=== PATIENT | female | born 1940 | race Caucasian/White ===

== ENCOUNTER 2022-08-26 21:28 | Inpatient (IN) | payer MEDICARE, OTHER ==
[~2022-08-26] VITALS: Ht 165.1 cm; Wt 86.1 kg
[~2022-08-26 21:28] MED LIST: AMA1T PO; AMLO5TAB PO; APIX5TAB3 PO; ATEN50TA8 PO; ATOR80TA PO; CLOP75TA34 PO; DOCU-28 PO; FURO-150 PO; GABA-532 PO; LISI40TA13 PO; MELO-100 PO; METF-900 PO; MIRT-116 PO; POTA-206 PO
--- NOTE | 2022-08-26 21:45 | NUR ---
XR TO PT BEDSIDE AT THIS TIME
[2022-08-26 21:48] LABS: BASOPHILS % (AUTO) 0.2 % (0-1); EOSINOPHILS # (AUTO) 0.3 X10'3 (0-0.9); HEMATOCRIT 33.9 % (35.0-45.0); HEMOGLOBIN 11.1 g/dl (12.0-16.0); LYMPHOCYTES % (AUTO) 7.3 % (21-51); MEAN CORPUSCULAR HEMOGLOBIN 30.6 PG (27.0-31.0); MEAN CORPUSCULAR HGB CONC 32.8 g/dL (33.0-36.5); MEAN CORPUSCULAR VOLUME 93.3 FL (78-98); MEAN PLATELET VOLUME 9.6 FL (7.4-10.4); MONOCYTES # (AUTO) 0.9 X10'3 (0-0.9); MONOCYTES % (AUTO) 6.2 % (2-12); NEUTROPHILS % (AUTO) 84.3 % (42-75); PLATELET COUNT 123 X10'3 (140-440); RED BLOOD COUNT 3.64 X10'6 (4.20-5.60); RED CELL DISTRIBUTION WIDTH 15.4 % (11.5-14.5); WHITE BLOOD COUNT 14.2 X10'3 (4.5-11.0)
--- NOTE | 2022-08-26 21:56 | NUR ---
TRAIN ELECTRONIC TECHNICIAN TO PT BEDSIDE AT THIS TIME
[2022-08-26 22:02] LABS: ALANINE AMINOTRANSFERASE 13 U/L (12-78); ALBUMIN/GLOBULIN RATIO 1.2 (1.1-1.5); ALKALINE PHOSPHATASE 102 IU/L (46-116); ANION GAP 5 (8-16); ASPARTATE AMINO TRANSFERASE 24 U/L (10-37); BILIRUBIN,TOTAL 0.9 MG/DL (0.1-1.0); BLOOD UREA NITROGEN 24 MG/DL (7-18); BUN/CREATININE RATIO 21.4 (10.0-20.0); CALCIUM 8.1 MG/DL (8.5-10.1); CHLORIDE 98 MMOL/L (99-107); CREATININE 1.12 MG/DL (0.40-0.90); GLUCOSE 156 MG/DL (70-104); SODIUM 139 MMOL/L (135-145); TOTAL CARBON DIOXIDE 36.5 MMOL/L (24-32); TOTAL PROTEIN 5.6 G/DL (6.4-8.2); eGFR 47 ML/MIN
[2022-08-26 22:13] LABS: POTASSIUM 3.8 MMOL/L (3.5-5.1)
[2022-08-26] MEDS ORDERED: CefTRIAXone 2gm/D5W 50ml BAG 50 ML IV ONE (22:25)
[2022-08-26] MEDS ORDERED: normal saline 1000ML IV soln IV ONE (22:25)
[2022-08-26] MEDS ORDERED: piperacillin/tazo 3.375gm/50ml 50 ML IV ONE (22:30)
[2022-08-26] MEDS ORDERED: vancomycin/NS 1 GM ADD-VANTAGE 250 ML IV ONE (22:30)
[2022-08-26 22:51] LABS: CLARITY,URINE CLEAR (Clear); COLOR,URINE YELLOW (Yellow); GLUCOSE, URINE NEGATIVE (Neg); KETONES,URINE TRACE mg/dl (Neg); LEUKOCYTE ESTERASE ,URINE NEGATIVE (Neg); NITRITES, URINE NEGATIVE (Neg); OCCULT BLOOD,URINE NEGATIVE (Neg); PROTEIN,URINE NEGATIVE (Neg); UROBILINOGEN,URINE 0.2 E.U/dL (0.2-1.0)
[2022-08-26 22:53] LABS: BURR CELLS FEW; PLATELET ESTIMATE DECREASED; POIKILOCYTOSIS FEW; TARGET CELLS FEW
[2022-08-26 22:54] LABS: ELLIPTOCYTES FEW
[2022-08-26 22:54] LABS: UA COLLECTION TYPE FOLEY CATH
[2022-08-26 22:57] LABS: HYALINE CASTS >30 /LPF (NEGATIVE); SQUAMOUS EPITHELIAL CELL,UR MANY /LPF (FEW)
[2022-08-26 22:58] LABS: BACTERIA,URINE FEW /HPF (Neg); WBC,URINE 0-4 /HPF (0-4)
[2022-08-26 22:59] LABS: TRANSITIONAL EPI CELLS,URINE FEW /HPF
--- NOTE | 2022-08-26 23:48 | NUR ---
DR. GONZÁLES TO PT BEDSIDE AT THIS TIME
[2022-08-27] VITALS (19 sets, daily range): BP systolic 88–131; BP diastolic 36–64
[2022-08-27] MEDS ORDERED: potassium Cl 20 mEq SR tablet PO PRN ×2 (00:05)
[2022-08-27] MEDS ORDERED: acetaminophen 325mg tablet PO PRN (00:05)
[2022-08-27] MEDS ORDERED: glucagon, human recombinant 1mg kit SUBCUT PRN (00:05)
[2022-08-27] MEDS ORDERED: magnesium 4gm in 100ml NS 100 ML IV PRN (00:05)
[2022-08-27] MEDS ORDERED: ondansetron/PF 4mg/2ml inj IV PRN (00:05)
[2022-08-27] MEDS ORDERED: DEXTROSE 15 GM of carb/4 tabs (each vial/BOTTLE has 4 tablets) PO PRN ×2 (00:05)
[2022-08-27] MEDS ORDERED: mag hydrox/Alum hydrox/simeth 30ml oral suspension PO PRN (00:05)
[2022-08-27] MEDS ORDERED: dextrose 50%-water 50ml dispensing syringe IV PRN ×2 (00:05)
[2022-08-27] MEDS ORDERED: PERFLUTREN PROTEIN-A MICROSPHR (Optison) 0.22 MG/ML 3ML VIAL IV PRN (00:05)
[2022-08-27] MEDS ORDERED: MESSAGE TO PHARMACY PO ONE (00:05)
[2022-08-27] MEDS ORDERED: NORepinephrine 8mg/ 250ml NS 250 ML IV PRN ×2 (00:50→11:36)
[2022-08-27 01:01] LABS: MAGNESIUM 1.6 MG/DL (1.5-2.4)
[2022-08-27] MEDS ORDERED: LIDOcaine 1% W/epiNEPHrine 1:100,000 20ml vial SQ ONE (01:15)
--- NOTE | 2022-08-27 01:50 | NUR ---
ASSUMED CARE FROM TALI FUENTES. DR SHEETS AT BEDSIDE PLACING CENTRAL LINE.
--- NOTE | 2022-08-27 02:00 | NUR ---
PER DR SHEETS, TURNED OFF NOREPI GTT TO SEE PT RESPONSE. AFTER 10 MIINUTES, PT BP DROPPED TO 65/24 AND 66/30, DR SHEETS NOTIFIED OF BP DROP. PER DR SHEETS, TURN BACK ON NOREPI GTT AND TITRATE. GTT RESTARTED.
[2022-08-27] MEDS ORDERED: IBUP-1985 PO (04:00)
[2022-08-27] MEDS ORDERED: HYDR-3965 PO (04:00)
[2022-08-27] MEDS ORDERED: ALB0.5UD IH (04:00)
[2022-08-27] MEDS ORDERED: LOPE2CAP PO (04:00)
[2022-08-27] MEDS ORDERED: DULO60CA65 PO (04:00)
[2022-08-27] MEDS ORDERED: GLIM2TAB6 PO (04:00)
[2022-08-27] MEDS ORDERED: BUDE0.5A11 NEB (04:00)
[2022-08-27] MEDS ORDERED: MULT-1085 PO (04:00)
[2022-08-27] MEDS ORDERED: RIVA20TA PO (04:00)
[2022-08-27] MEDS ORDERED: ATOR-2 PO (04:00)
[2022-08-27] MEDS ORDERED: ONDA-103 PO (04:00)
[2022-08-27] MEDS ORDERED: COLE1TAB2 PO (04:00)
[2022-08-27] MEDS ORDERED: CARV25TA3 PO (04:00)
[2022-08-27] MEDS ORDERED: PLE50T PO (04:00)
[2022-08-27] MEDS ORDERED: ASCO-10 PO (04:00)
[2022-08-27] MEDS ORDERED: TRAZ-251 PO (04:00)
[2022-08-27] MEDS ORDERED: loperamide 2mg capsule PO PRN (04:45)
[2022-08-27] MEDS ORDERED: HYDROcodone/acetaminophen 5mg/325mg tablet PO PRN (04:45)
--- NOTE | 2022-08-27 06:31 | NUR ---
Patient in room ICU 2038. I have received report from TALI Fitch and had the opportunity to ask questions and assume patient care.
[2022-08-27] MEDS: piperacillin/tazo 4.5gm/100ml 100 ML IV SCH ×3 (07:07→21:22)
[2022-08-27] MEDS: budesonide 0.5mg/2ml UD nebule IH SCH ×2 (08:00→19:28)
[2022-08-27] MEDS ORDERED: carVEDilol 12.5mg tablet PO SCH (08:00)
[2022-08-27] MEDS: docusate sod 100mg capsule PO SCH ×2 (08:00→20:47)
[2022-08-27] MEDS ORDERED: COLESTIPOL HCL 1 GM PO SCH (08:00)
[2022-08-27] MEDS: K and/or MAG REPLACEMENT MC SCH ×2 (08:00→20:00)
[2022-08-27] MEDS ORDERED: non-formulary drug (Ondansetron HCl 1 TAB) PO SCH (08:00)
[2022-08-27] MEDS ORDERED: apixaban 5mg tablet PO SCH (08:00)
[2022-08-27] MEDS: clopidogrel 75mg tablet PO SCH (08:08)
[2022-08-27] MEDS: cilostazol 50mg tablet PO SCH ×2 (08:08→20:47)
[2022-08-27] MEDS: duloxetine 30mg CAPSULE.DR PO SCH (08:08)
[2022-08-27] MEDS: ascorbic acid 500mg tablet PO SCH ×2 (08:08→20:47)
[2022-08-27] MEDS: gabapentin 300mg capsule PO SCH ×2 (08:08→20:48)
[2022-08-27] MEDS: multivitamins, therapeutics tablet PO SCH (08:08)
[2022-08-27] MEDS: normal saline 1000ml 1,000 ML IV SCH ×2 (09:19→21:24)
--- NOTE | 2022-08-27 11:06 | NUR ---
Initial: Per ER pt admit for acute metabolic encephalopathy and sepsis. Per RN pt with multiple wounds. Wound care has been consulted, pending assessment at this time. Noted pt receiving routine MVI and Vitamin C which will assist with wound healing. Pt initially on a clear liquid diet however advanced to MM5 with thin liquids per ST recs this morning. Lunch to be first meal since diet advancement. LBM 5/16 per EMR. Pt with routine bowel care available though documented to be refusing. Will continue to follow closely and make recommendations as appropriate pending wound care assessment and trends in PO intake. Recommendations: 1) Continue MM5 diet with thin liquids per ST recs; liberalize to regular as appropriate per ST recs 2) Monitor need for ONS/additional protein 3) Continue routine MVI and Vitamin C to assist with wound healing 4) Routine bowel care 5) Scaled weight this admit; subsequent weekly scaled weights Addendum: 08/27/22 at [address] Amended: Links added.
--- NOTE | 2022-08-27 13:48 | NUR ---
PRESSURE ULCER EDUCATION: DEFINITION: A pressure ulcer is an area of skin that breaks down when you stay in one position too long. The constant pressure against the skin reduces the blood flow to that area and the affected tissue dies. CAUSES: "Being bedridden or in a wheelchair "Fragile skin "Having a chronic condition, such as diabetes or vascular disease "Inability to move certain parts of your body without assistance "Older age "Incontinence of urine or stool SYMPTOMS: "A reddened area that DOES NOT turn white when pressed on - this can be the beginning of a pressure ulcer "A blister, deep sore or a crater - these can be advanced pressure ulcers FIRST AID: "Relieve the pressure on this area "Keep the area clean and dry "Call your primary doctor if you see any of the above symptoms "DO NOT massage the area "DO NOT use a donut shaped or ring shaped pillow- these actually interfere with the blood flow and cause complications PREVENTION: "Check for pressure ulcers everyday "Change position at least every two hours to relieve pressure "Use items that help relieve pressure- pillows, sheepskin, foam padding, and powders. "Keep skin clean and dry "Eat healthy well balanced meals "Exercise daily IF YOU SEE ANY OF THESE SYMPTOMS WHILE IN THE HOSPITAL - TELL YOUR NURSE IMMEDIATELY. IF YOU SEE ANY OF THESE SYMPTOMS WHILE AT HOME OR HAVE ANY QUESTIONS OR CONCERNS ABOUT PRESSURE ULCERS - CALL YOUR PRIMARY DOCTOR IMMEDIATELY. Addendum: 08/27/22 at 1350 by Caridad Solis RN Amended: Links added.
[2022-08-27] MEDS: pantoprazole 40MG/NS 100ML BAG 100 ML IV SCH (15:02)
[2022-08-27] MEDS ORDERED: GABA-530 PO (17:31)
[2022-08-27] MEDS ORDERED: vancomycin/NS 1 GM ADD-VANTAGE 250 ML IV SCH (18:00)
--- NOTE | 2022-08-27 18:30 | NUR ---
Problems reprioritized. Patient report given, questions answered & plan of care reviewed with TALI Young.
[2022-08-27] MEDS: traZODone 50mg tablet PO SCH (20:47)
[2022-08-27] MEDS: nystatin 15 GM powder TP SCH (20:48)
[2022-08-27] MEDS: enoxaparin 40mg/0.4ml syringe SQ SCH (20:54)
[2022-08-27] MEDS: insulin glargine (Lantus) pen - multi-dose SQ SCH (21:00)
[2022-08-28] VITALS (23 sets, daily range): BP systolic 86–149; BP diastolic 43–78
[2022-08-28] MEDS: vancomycin/NS 1 GM ADD-VANTAGE 250 ML IV SCH (02:16)
[2022-08-28 03:04] LABS: BASOPHILS % (AUTO) 0.3 % (0-1); EOSINOPHILS # (AUTO) 0.3 X10'3 (0-0.9); EOSINOPHILS % (AUTO) 3.8 % (0-6); HEMATOCRIT 30.8 % (35.0-45.0); HEMOGLOBIN 9.9 g/dl (12.0-16.0); LYMPHOCYTES # (AUTO) 0.8 X10'3 (1.1-4.8); LYMPHOCYTES % (AUTO) 10.4 % (21-51); MEAN CORPUSCULAR HEMOGLOBIN 30.2 PG (27.0-31.0); MEAN CORPUSCULAR VOLUME 94.3 FL (78-98); MEAN PLATELET VOLUME 9.4 FL (7.4-10.4); MONOCYTES # (AUTO) 0.6 X10'3 (0-0.9); MONOCYTES % (AUTO) 7.4 % (2-12); NEUTROPHILS % (AUTO) 78.1 % (42-75); PLATELET COUNT 114 X10'3 (140-440); RED BLOOD COUNT 3.27 X10'6 (4.20-5.60); RED CELL DISTRIBUTION WIDTH 15.7 % (11.5-14.5); WHITE BLOOD COUNT 7.7 X10'3 (4.5-11.0)
[2022-08-28 03:19] LABS: ALANINE AMINOTRANSFERASE 7 U/L (12-78); ALBUMIN 2.2 G/DL (3.4-5.0); ALKALINE PHOSPHATASE 69 IU/L (46-116); ANION GAP 2 (8-16); ASPARTATE AMINO TRANSFERASE 15 U/L (10-37); BILIRUBIN,TOTAL 0.8 MG/DL (0.1-1.0); BLOOD UREA NITROGEN 17 MG/DL (7-18); CHLORIDE 107 MMOL/L (99-107); CREATININE 0.68 MG/DL (0.40-0.90); GLUCOSE 123 MG/DL (70-104); MAGNESIUM 1.6 MG/DL (1.5-2.4); SODIUM 143 MMOL/L (135-145); TOTAL CARBON DIOXIDE 34.1 MMOL/L (24-32); TOTAL PROTEIN 4.4 G/DL (6.4-8.2); eGFR 83 ML/MIN
[2022-08-28 03:46] LABS: PLATELET ESTIMATE DECREASED; SMUDGE CELLS FEW; TOTAL CELLS COUNTED 100
[2022-08-28 03:47] LABS: BURR CELLS FEW
[2022-08-28] MEDS: potassium Cl 40MEQ/1/2NS 520ml 520 ML IV PRN ×2 (04:05→10:31)
[2022-08-28] MEDS: piperacillin/tazo 4.5gm/100ml 100 ML IV SCH ×3 (04:35→22:00)
--- NOTE | 2022-08-28 06:25 | NUR ---
Patient in room ICU 2038. I have received report from TALI Young and had the opportunity to ask questions and assume patient care.
--- NOTE | 2022-08-28 06:40 | NUR ---
Problems reprioritized. Patient report given, questions answered & plan of care reviewed with Nikole CESAR.
[2022-08-28] MEDS: K and/or MAG REPLACEMENT MC SCH ×2 (08:00→20:00)
[2022-08-28] MEDS: budesonide 0.5mg/2ml UD nebule IH SCH ×2 (08:05→19:44)
[2022-08-28] MEDS: cilostazol 50mg tablet PO SCH ×2 (09:04→20:39)
[2022-08-28] MEDS: duloxetine 30mg CAPSULE.DR PO SCH (09:04)
[2022-08-28] MEDS: gabapentin 300mg capsule PO SCH ×2 (09:04→20:39)
[2022-08-28] MEDS: ascorbic acid 500mg tablet PO SCH ×2 (09:04→20:38)
[2022-08-28] MEDS: multivitamins, therapeutics tablet PO SCH (09:04)
[2022-08-28] MEDS: clopidogrel 75mg tablet PO SCH (09:04)
[2022-08-28] MEDS: pantoprazole 40MG/NS 100ML BAG 100 ML IV SCH (09:04)
[2022-08-28] MEDS: nystatin 15 GM powder TP SCH ×3 (09:05→21:48)
[2022-08-28] MEDS: docusate sod 100mg capsule PO SCH ×2 (09:05→20:38)
[2022-08-28] MEDS ORDERED: normal saline 1000ml 1,000 ML IV ONE (10:20)
[2022-08-28] MEDS: midodrine 5mg tablet PO SCH ×2 (10:30→15:42)
--- NOTE | 2022-08-28 11:16 | NUR ---
F/u: Pt seen by wound care, per note pt with a healing surgical wound to right thigh, closed scab to right ankle, dry scabs to RLE, surgical wound to right groin that appears dry with light yellow slough with no s/s infection, multiple scabs to BUE, skin tear to RUE, and MASD to bilat buttocks. Noted pt documented to have refused all meals yesterday. Pt s/p BSS this morning with ST recs texture liberalization to SB6 and per RN pt is "eating fine". Pt seen at bedside, food preferences were obtained and d/w dietary, see below. Pt endorses a good appetite and states she's eating all her food though then reports only consuming toast at breakfast, however upon reviewing meal ticket pt did not get toast d/t texture modification. Pt denies food allergies and denies difficulty chewing or swallowing and expresses frustration regarding current texture modification. RD informed that current texture is per ST so unable to adjust at this time. Pt confirms LBM 5/16 and denies nutrition intervention to assist with bowel regularity at this time. Pt receiving routine Colace. Will continue to follow closely. Recommendations: 1) Continue SB6 diet with thin liquids per ST recs; liberalize to regular as appropriate per ST recs 2) Monitor need for ONS/additional protein 3) [place] food preferences: oatmeal with brown sugar WB; dislikes cream of wheat and tomato bisque 4) Continue routine MVI and Vitamin C to assist with wound healing 5) Routine bowel care; monitor need for additional 6) Weekly scaled weights Addendum: 08/28/22 at [address] Amended: Links added.
--- NOTE | 2022-08-28 12:17 | NUR ---
DM consult: Per EMR pt with T2DM, well controlled for geriatric age with A1c 7.0%, DM education not warranted at this time. Will continue to follow. Addendum: 08/28/22 at [address] Amended: Links added.
--- NOTE | 2022-08-28 12:24 | NUR ---
Pulse oximeter with not read on pt's finger and pt refusing to allow pulse oximeter be applied to ear. Addendum: 08/28/22 at 1226 by Nikole Medrano RN Amended: Links added.
[2022-08-28] MEDS: normal saline 1000ml 1,000 ML IV SCH (15:42)
--- NOTE | 2022-08-28 18:39 | NUR ---
Problems reprioritized. Patient report given, questions answered & plan of care reviewed with TALI Heredia.
[2022-08-28] MEDS: HYDROcodone/acetaminophen 5mg/325mg tablet PO PRN (18:52)
[2022-08-28] MEDS: traZODone 50mg tablet PO SCH (20:38)
[2022-08-28] MEDS: enoxaparin 40mg/0.4ml syringe SQ SCH (20:39)
[2022-08-28] MEDS: insulin glargine (Lantus) pen - multi-dose SQ SCH (21:00)
[2022-08-29] VITALS (21 sets, daily range): BP systolic 102–136; BP diastolic 50–76
[2022-08-29] MEDS: midodrine 5mg tablet PO SCH ×3 (00:27→16:43)
[2022-08-29] MEDS: normal saline 1000ml 1,000 ML IV SCH (01:12)
[2022-08-29] MEDS: vancomycin/NS 1 GM ADD-VANTAGE 250 ML IV SCH (02:00)
[2022-08-29 02:46] LABS: ALANINE AMINOTRANSFERASE 15 U/L (12-78); ALBUMIN 2.4 G/DL (3.4-5.0); ALKALINE PHOSPHATASE 80 IU/L (46-116); ANION GAP 2 (8-16); ASPARTATE AMINO TRANSFERASE 24 U/L (10-37); BASOPHILS % (AUTO) 0.2 % (0-1); BILIRUBIN,TOTAL 0.7 MG/DL (0.1-1.0); BLOOD UREA NITROGEN 15 MG/DL (7-18); BUN/CREATININE RATIO 20.3 (10.0-20.0); CALCIUM 7.6 MG/DL (8.5-10.1); CHLORIDE 107 MMOL/L (99-107); CREATININE 0.74 MG/DL (0.40-0.90); EOSINOPHILS # (AUTO) 0.1 X10'3 (0-0.9); EOSINOPHILS % (AUTO) 2.2 % (0-6); GLUCOSE 151 MG/DL (70-104); HEMOGLOBIN 10.1 g/dl (12.0-16.0); LYMPHOCYTES # (AUTO) 0.6 X10'3 (1.1-4.8); LYMPHOCYTES % (AUTO) 9.3 % (21-51); MAGNESIUM 1.5 MG/DL (1.5-2.4); MEAN CORPUSCULAR HEMOGLOBIN 30.6 PG (27.0-31.0); MEAN CORPUSCULAR HGB CONC 31.7 g/dL (33.0-36.5); MEAN CORPUSCULAR VOLUME 96.6 FL (78-98); MONOCYTES # (AUTO) 0.6 X10'3 (0-0.9); MONOCYTES % (AUTO) 8.5 % (2-12); NEUTROPHILS # (AUTO) 5.5 X10'3 (1.8-7.7); NEUTROPHILS % (AUTO) 79.8 % (42-75); PLATELET COUNT 115 X10'3 (140-440); POTASSIUM 4.5 MMOL/L (3.5-5.1); RED BLOOD COUNT 3.31 X10'6 (4.20-5.60); RED CELL DISTRIBUTION WIDTH 15.9 % (11.5-14.5); SODIUM 140 MMOL/L (135-145); TOTAL PROTEIN 4.9 G/DL (6.4-8.2); WHITE BLOOD COUNT 6.9 X10'3 (4.5-11.0); eGFR 76 ML/MIN
--- NOTE | 2022-08-29 06:31 | NUR ---
Patient in room ICU 2038. I have received report from TALI Heredia and had the opportunity to ask questions and assume patient care.
[2022-08-29] MEDS: piperacillin/tazo 4.5gm/100ml 100 ML IV SCH ×3 (06:49→21:39)
[2022-08-29] MEDS: budesonide 0.5mg/2ml UD nebule IH SCH ×3 (08:00→20:13)
[2022-08-29] MEDS: K and/or MAG REPLACEMENT MC SCH ×2 (08:00→20:00)
[2022-08-29] MEDS ORDERED: furosemide 20 MG/2 ML vial IV ONE (08:25)
[2022-08-29] MEDS ORDERED: bisacodyl 10mg suppository rectal RC PRN (08:25)
[2022-08-29] MEDS: gabapentin 300mg capsule PO SCH ×2 (09:09→19:37)
[2022-08-29] MEDS: pantoprazole 40MG/NS 100ML BAG 100 ML IV SCH (09:09)
[2022-08-29] MEDS: clopidogrel 75mg tablet PO SCH (09:09)
[2022-08-29] MEDS: docusate sod 100mg capsule PO SCH ×2 (09:09→19:35)
[2022-08-29] MEDS: ascorbic acid 500mg tablet PO SCH ×2 (09:09→19:35)
[2022-08-29] MEDS: cilostazol 50mg tablet PO SCH ×2 (09:09→19:35)
[2022-08-29] MEDS: duloxetine 30mg CAPSULE.DR PO SCH (09:10)
[2022-08-29] MEDS: HYDROcodone/acetaminophen 5mg/325mg tablet PO PRN (09:10)
[2022-08-29] MEDS: nystatin 15 GM powder TP SCH ×3 (09:12→21:39)
[2022-08-29] MEDS: multivitamins, therapeutics tablet PO SCH (09:12)
[2022-08-29] MEDS: insulin Lispro (HumaLOG) vial - multi-dose SQ SCH (13:23)
[2022-08-29] MEDS ORDERED: vancomycin/NS 1 GM ADD-VANTAGE 250 ML IV SCH (14:00)
--- NOTE | 2022-08-29 18:26 | NUR ---
Problems reprioritized. Patient report given, questions answered & plan of care reviewed with TALI Stephen.
[2022-08-29] MEDS: magnesium hydroxide 30ml (MOM) UD suspension PO SCH (19:35)
[2022-08-29] MEDS: enoxaparin 40mg/0.4ml syringe SQ SCH (19:37)
[2022-08-29] MEDS: insulin glargine (Lantus) pen - multi-dose SQ SCH (21:00)
[2022-08-29] MEDS: traZODone 50mg tablet PO SCH (21:39)
[2022-08-30] VITALS (24 sets, daily range): BP systolic 98–156; BP diastolic 51–88
[2022-08-30] MEDS: midodrine 5mg tablet PO SCH ×2 (00:38→08:18)
[2022-08-30] MEDS ORDERED: VANCOMYCIN LEVEL IV ONE ×2 (01:30→13:30)
[2022-08-30 02:36] LABS: BASOPHILS % (AUTO) 0.3 % (0-1); EOSINOPHILS # (AUTO) 0.1 X10'3 (0-0.9); EOSINOPHILS % (AUTO) 1.2 % (0-6); HEMATOCRIT 33.3 % (35.0-45.0); HEMOGLOBIN 10.5 g/dl (12.0-16.0); LYMPHOCYTES # (AUTO) 0.5 X10'3 (1.1-4.8); LYMPHOCYTES % (AUTO) 7.2 % (21-51); MEAN CORPUSCULAR HEMOGLOBIN 30.5 PG (27.0-31.0); MEAN CORPUSCULAR HGB CONC 31.4 g/dL (33.0-36.5); MEAN PLATELET VOLUME 8.7 FL (7.4-10.4); MONOCYTES # (AUTO) 0.5 X10'3 (0-0.9); MONOCYTES % (AUTO) 6.8 % (2-12); NEUTROPHILS # (AUTO) 6.1 X10'3 (1.8-7.7); NEUTROPHILS % (AUTO) 84.5 % (42-75); PLATELET COUNT 125 X10'3 (140-440); RED BLOOD COUNT 3.43 X10'6 (4.20-5.60); WHITE BLOOD COUNT 7.2 X10'3 (4.5-11.0)
[2022-08-30 03:00] LABS: ALANINE AMINOTRANSFERASE 11 U/L (12-78); ALBUMIN 2.6 G/DL (3.4-5.0); ALKALINE PHOSPHATASE 78 IU/L (46-116); ANION GAP 1 (8-16); ASPARTATE AMINO TRANSFERASE 16 U/L (10-37); BILIRUBIN,TOTAL 0.8 MG/DL (0.1-1.0); BLOOD UREA NITROGEN 14 MG/DL (7-18); BUN/CREATININE RATIO 17.1 (10.0-20.0); CALCIUM 8.2 MG/DL (8.5-10.1); CHLORIDE 108 MMOL/L (99-107); CREATININE 0.82 MG/DL (0.40-0.90); GLUCOSE 110 MG/DL (70-104); MAGNESIUM 1.6 MG/DL (1.5-2.4); POTASSIUM 4.2 MMOL/L (3.5-5.1); SODIUM 142 MMOL/L (135-145); TOTAL CARBON DIOXIDE 33.3 MMOL/L (24-32); TOTAL PROTEIN 5.3 G/DL (6.4-8.2); eGFR 67 ML/MIN
[2022-08-30] MEDS: piperacillin/tazo 4.5gm/100ml 100 ML IV SCH ×3 (05:26→21:00)
--- NOTE | 2022-08-30 06:00 | NUR ---
Patient in room ICU 2038. I have received report from Zafar CESAR and had the opportunity to ask questions and assume patient care.
--- NOTE | 2022-08-30 06:18 | NUR ---
Problems reprioritized. Patient report given, questions answered & plan of care reviewed with TALI Esposito.
[2022-08-30] MEDS: K and/or MAG REPLACEMENT MC SCH ×2 (07:24→19:27)
[2022-08-30] MEDS: magnesium hydroxide 30ml (MOM) UD suspension PO SCH ×2 (07:25→19:27)
[2022-08-30] MEDS: ipratropium/albuterol 3ml nebule NEB PRN ×3 (07:56→19:44)
[2022-08-30] MEDS: budesonide 0.5mg/2ml UD nebule IH SCH ×2 (07:56→19:44)
[2022-08-30] MEDS: ascorbic acid 500mg tablet PO SCH ×2 (08:00→20:06)
[2022-08-30] MEDS: multivitamins, therapeutics tablet PO SCH (08:00)
[2022-08-30] MEDS: clopidogrel 75mg tablet PO SCH (08:18)
[2022-08-30] MEDS: pantoprazole 40mg Tablet.DR PO SCH (08:18)
[2022-08-30] MEDS: gabapentin 300mg capsule PO SCH ×2 (08:18→20:06)
[2022-08-30] MEDS: duloxetine 30mg CAPSULE.DR PO SCH (08:19)
[2022-08-30] MEDS: docusate sod 100mg capsule PO SCH ×2 (08:19→19:27)
[2022-08-30] MEDS: cilostazol 50mg tablet PO SCH ×2 (08:19→20:06)
[2022-08-30] MEDS: nystatin 15 GM powder TP SCH ×3 (08:33→20:07)
--- NOTE | 2022-08-30 08:57 | NUR ---
Reassessment: Overall pt eating poorly, documented to be refusing most meals. Per verbal d/w RN 08/29 pt likes fruit and ice cream and would also likely be receptive to shakes and smoothies. See below for nutrition interventions that were d/w dietary. If pt continues to refuse meals/eat poorly pt would benefit from NGT placement for EN if within POC. Per RN pt has bottom teeth and no upper dentures however pt is able to chew just fine without any issues. LBM 08/27, documented as a smear. Pt has been receiving routine Colace BID and was started on routine MoM BID 08/29 though it was held this morning d/t not being needed. Hopefully this is an indication that pt had a BM this morning. Will continue to follow closely. Recommendations: 1) Continue SB6 diet with thin liquids per ST recs; liberalize to regular as appropriate-pt denies difficulty chewing, RN confirmed 08/29 2) Fruit TID, smoothie WB, shake and Magic Cup WL, shake and ice cream WS 3) [place] food preferences: oatmeal with brown sugar WB; dislikes cream of wheat and tomato bisque 4) Monitor need for ONS/additional protein; IF PO intake does not improve, consider NGT placement for EN IF within POC 5) Continue routine MVI and Vitamin C to assist with wound healing 6) Routine bowel care 7) Weekly scaled weights Addendum: 08/30/22 at [address] Amended: Links added.
--- NOTE | 2022-08-30 12:07 | NUR ---
Informed Dr. Mora that pt not eating well and urine output is low 20-30ml/hr. MD ordered nutritional supplement. also D/C'd midodrine and stated will look at reordering cardizem due to heart rate 110s-120s in afib. Informed that pt is very weak with PT sitting on the side of the bed, MD stated he would speak with case management regarding rehab for pt.
[2022-08-30] MEDS: lactose-reduced food (Ensure Enlive) - 237ml bottle PO SCH ×2 (13:56→18:16)
--- NOTE | 2022-08-30 18:24 | NUR ---
Problems reprioritized. Patient report given, questions answered & plan of care reviewed with Roxy CESAR.
--- NOTE | 2022-08-30 18:30 | NUR ---
Patient in room ICU 2038. I have received report from Cate CESAR and had the opportunity to ask questions and assume patient care.
[2022-08-30] MEDS: carVEDilol 12.5mg tablet PO SCH (20:06)
[2022-08-30] MEDS: traZODone 50mg tablet PO SCH (20:06)
[2022-08-30] MEDS: enoxaparin 40mg/0.4ml syringe SQ SCH (20:07)
[2022-08-30] MEDS: insulin glargine (Lantus) pen - multi-dose SQ SCH (20:25)
[2022-08-30] MEDS: insulin Lispro (HumaLOG) vial - multi-dose SQ SCH (20:26)
[2022-08-30] MEDS ORDERED: rivaroxaban 20mg tablet PO SCH (21:00)
[2022-08-31] VITALS (24 sets, daily range): BP systolic 115–164; BP diastolic 54–98
[2022-08-31 03:05] LABS: ALANINE AMINOTRANSFERASE 9 U/L (12-78); ALBUMIN 2.4 G/DL (3.4-5.0); ALBUMIN/GLOBULIN RATIO 0.9 (1.1-1.5); ALKALINE PHOSPHATASE 75 IU/L (46-116); ANION GAP 1 (8-16); ASPARTATE AMINO TRANSFERASE 16 U/L (10-37); BILIRUBIN,TOTAL 0.7 MG/DL (0.1-1.0); BLOOD UREA NITROGEN 14 MG/DL (7-18); BUN/CREATININE RATIO 18.9 (10.0-20.0); CALCIUM 8.2 MG/DL (8.5-10.1); CHLORIDE 104 MMOL/L (99-107); CREATININE 0.74 MG/DL (0.40-0.90); GLUCOSE 145 MG/DL (70-104); MAGNESIUM 1.5 MG/DL (1.5-2.4); POTASSIUM 4.1 MMOL/L (3.5-5.1); SODIUM 140 MMOL/L (135-145); TOTAL CARBON DIOXIDE 35.4 MMOL/L (24-32); TOTAL PROTEIN 5.1 G/DL (6.4-8.2); eGFR 76 ML/MIN
[2022-08-31 03:08] LABS: BASOPHILS % (AUTO) 0.5 % (0-1); EOSINOPHILS # (AUTO) 0.1 X10'3 (0-0.9); EOSINOPHILS % (AUTO) 1.1 % (0-6); HEMATOCRIT 31.8 % (35.0-45.0); HEMOGLOBIN 10.2 g/dl (12.0-16.0); LYMPHOCYTES # (AUTO) 0.6 X10'3 (1.1-4.8); LYMPHOCYTES % (AUTO) 7.7 % (21-51); MEAN CORPUSCULAR HEMOGLOBIN 30.6 PG (27.0-31.0); MEAN CORPUSCULAR HGB CONC 32.1 g/dL (33.0-36.5); MEAN CORPUSCULAR VOLUME 95.3 FL (78-98); MEAN PLATELET VOLUME 8.8 FL (7.4-10.4); MONOCYTES # (AUTO) 0.6 X10'3 (0-0.9); MONOCYTES % (AUTO) 7.7 % (2-12); NEUTROPHILS # (AUTO) 6.3 X10'3 (1.8-7.7); PLATELET COUNT 122 X10'3 (140-440); RED BLOOD COUNT 3.34 X10'6 (4.20-5.60); RED CELL DISTRIBUTION WIDTH 15.7 % (11.5-14.5); WHITE BLOOD COUNT 7.6 X10'3 (4.5-11.0)
[2022-08-31] MEDS: piperacillin/tazo 4.5gm/100ml 100 ML IV SCH ×3 (06:08→21:35)
--- NOTE | 2022-08-31 06:15 | NUR ---
Problems reprioritized. Patient report given, questions answered & plan of care reviewed with Ford CESAR.
--- NOTE | 2022-08-31 06:30 | NUR ---
Patient in room ICU 2038. I have received report from TALI Ramsey and had the opportunity to ask questions and assume patient care.
[2022-08-31] MEDS: magnesium hydroxide 30ml (MOM) UD suspension PO SCH ×2 (08:00→19:26)
[2022-08-31] MEDS: lactose-reduced food (Ensure Enlive) - 237ml bottle PO SCH ×3 (08:00→18:51)
[2022-08-31] MEDS: K and/or MAG REPLACEMENT MC SCH ×2 (08:00→20:00)
[2022-08-31] MEDS: docusate sod 100mg capsule PO SCH ×2 (08:00→19:26)
[2022-08-31] MEDS: duloxetine 30mg CAPSULE.DR PO SCH (08:08)
[2022-08-31] MEDS: ascorbic acid 500mg tablet PO SCH ×2 (08:08→19:27)
[2022-08-31] MEDS: clopidogrel 75mg tablet PO SCH (08:08)
[2022-08-31] MEDS: pantoprazole 40mg Tablet.DR PO SCH (08:08)
[2022-08-31] MEDS: carVEDilol 12.5mg tablet PO SCH ×2 (08:08→19:14)
[2022-08-31] MEDS: cilostazol 50mg tablet PO SCH ×2 (08:08→19:26)
[2022-08-31] MEDS: multivitamins, therapeutics tablet PO SCH (08:08)
[2022-08-31] MEDS: gabapentin 300mg capsule PO SCH ×2 (08:08→19:26)
[2022-08-31] MEDS: nystatin 15 GM powder TP SCH ×3 (08:09→21:14)
[2022-08-31] MEDS: budesonide 0.5mg/2ml UD nebule IH SCH ×2 (08:59→19:20)
--- NOTE | 2022-08-31 12:16 | NUR ---
Dr Jericho toledo. Spoke with pt's daughter at bedside. 20 mg Lasix IVP once ordered.
[2022-08-31] MEDS ORDERED: furosemide 20 MG/2 ML vial IV ONE ×2 (12:20→19:00)
--- NOTE | 2022-08-31 17:00 | NUR ---
Pt has become increasingly confused. Pt's daughter is at bedside and is concerned. Paged Dr Echavarria.
--- NOTE | 2022-08-31 17:52 | NUR ---
Paged Jericho again at [phone].
--- NOTE | 2022-08-31 18:15 | NUR ---
Problems reprioritized. Patient report given, questions answered & plan of care reviewed with TALI Ramsey.
--- NOTE | 2022-08-31 18:30 | NUR ---
Called Dr Mora regarding patients altered mental status. STAT abg ordered. Patient is refusing to wear bipap at this time.
--- NOTE | 2022-08-31 18:30 | NUR ---
Patient in room ICU 2038. I have received report from Ford CESAR and had the opportunity to ask questions and assume patient care.
[2022-08-31 18:53] LABS: ABG BASE EXCESS 6.3 mmol/L (-2.0-2.0); ABG HCO3 34.6 mmol/L (22.0-26.0); ABG OXYGEN SATURATION 96.2 % (94-97); ABG PCO2 (T) 67.7 mmHg (32.0-45.0); ABG PO2 (T) 77.1 mmHg (75.0-100.0); ALLEN'S TEST POSITIVE; FCOHb 0.6 % (0.0-3.9); FLOW 3 L/min; FMetHb 0.3 % (0.0-1.5); FO2Hb 95.3 % (94-97); TOTAL HEMOGLOBIN 11.9 G/dl (12.0-16.0)
[2022-08-31] MEDS: enoxaparin 40mg/0.4ml syringe SQ SCH (19:14)
[2022-08-31] MEDS: ipratropium/albuterol 3ml nebule NEB PRN (19:20)
--- NOTE | 2022-08-31 20:00 | NUR ---
Patient is refusing to take PM medications. was able to take one med and refused the rest of pO meds. Patient continues to refuse bipap. Answering questions appropriatley.
[2022-08-31 20:03] LABS: CLARITY,URINE CLOUDY (Clear); COLOR,URINE YELLOW (Yellow); GLUCOSE, URINE NEGATIVE (Neg); KETONES,URINE NEGATIVE (Neg); LEUKOCYTE ESTERASE ,URINE MODERATE (Neg); NITRITES, URINE NEGATIVE (Neg); OCCULT BLOOD,URINE MODERATE (Neg); PROTEIN,URINE NEGATIVE (Neg); UROBILINOGEN,URINE 0.2 E.U/dL (0.2-1.0)
[2022-08-31 20:03] LABS: BASOPHILS % (AUTO) 0.3 % (0-1); EOSINOPHILS # (AUTO) 0.1 X10'3 (0-0.9); EOSINOPHILS % (AUTO) 0.8 % (0-6); HEMATOCRIT 33.5 % (35.0-45.0); HEMOGLOBIN 10.9 g/dl (12.0-16.0); LYMPHOCYTES # (AUTO) 0.6 X10'3 (1.1-4.8); LYMPHOCYTES % (AUTO) 6.7 % (21-51); MEAN CORPUSCULAR HEMOGLOBIN 30.8 PG (27.0-31.0); MEAN CORPUSCULAR HGB CONC 32.5 g/dL (33.0-36.5); MEAN CORPUSCULAR VOLUME 94.6 FL (78-98); MEAN PLATELET VOLUME 8.7 FL (7.4-10.4); MONOCYTES # (AUTO) 0.6 X10'3 (0-0.9); MONOCYTES % (AUTO) 7.2 % (2-12); NEUTROPHILS # (AUTO) 7.3 X10'3 (1.8-7.7); PLATELET COUNT 130 X10'3 (140-440); RED BLOOD COUNT 3.54 X10'6 (4.20-5.60); RED CELL DISTRIBUTION WIDTH 15.7 % (11.5-14.5); WHITE BLOOD COUNT 8.6 X10'3 (4.5-11.0)
[2022-08-31 20:11] LABS: UA COLLECTION TYPE FOLEY CATH
[2022-08-31 20:11] LABS: ALANINE AMINOTRANSFERASE 9 U/L (12-78); ALBUMIN 2.7 G/DL (3.4-5.0); ALBUMIN/GLOBULIN RATIO 0.9 (1.1-1.5); ALKALINE PHOSPHATASE 88 IU/L (46-116); ANION GAP 1 (8-16); ASPARTATE AMINO TRANSFERASE 28 U/L (10-37); BILIRUBIN,TOTAL 0.9 MG/DL (0.1-1.0); BLOOD UREA NITROGEN 12 MG/DL (7-18); BUN/CREATININE RATIO 15.2 (10.0-20.0); CALCIUM 8.5 MG/DL (8.5-10.1); CHLORIDE 104 MMOL/L (99-107); CREATININE 0.79 MG/DL (0.40-0.90); GLUCOSE 198 MG/DL (70-104); MAGNESIUM 1.5 MG/DL (1.5-2.4); PHOSPHORUS 2.9 MG/DL (2.3-4.5); POTASSIUM 3.6 MMOL/L (3.5-5.1); SODIUM 142 MMOL/L (135-145); TOTAL CARBON DIOXIDE 37.1 MMOL/L (24-32); TOTAL PROTEIN 5.6 G/DL (6.4-8.2); eGFR 70 ML/MIN
[2022-08-31 20:15] LABS: CAL OXALATE CRYSTALS 1+ /HPF (NEGATIVE); URIC ACID CRYSTALS 2+ /HPF (NEGATIVE)
[2022-08-31 20:16] LABS: YEAST MANY /HPF (NEGATIVE)
[2022-08-31 20:18] LABS: BACTERIA,URINE FEW /HPF (Neg); WBC,URINE 30-50 /HPF (0-4)
[2022-08-31 20:56] LABS: SQUAMOUS EPITHELIAL CELL,UR FEW /LPF (FEW)
[2022-08-31] MEDS: traZODone 50mg tablet PO SCH (21:00)
[2022-08-31] MEDS: insulin glargine (Lantus) pen - multi-dose SQ SCH (21:00)
--- NOTE | 2022-08-31 22:00 | NUR ---
Patients confusion increasing. Notified Magu of labs. No new orders at this time. Patient continues to refuse bipap.
[2022-09-01] VITALS (15 sets, daily range): BP systolic 125–178; BP diastolic 64–93
[2022-09-01 02:47] LABS: ALBUMIN 2.4 G/DL (3.4-5.0); ALBUMIN/GLOBULIN RATIO 0.9 (1.1-1.5); ALKALINE PHOSPHATASE 75 IU/L (46-116); ANION GAP 1 (8-16); ASPARTATE AMINO TRANSFERASE 19 U/L (10-37); BILIRUBIN,TOTAL 0.8 MG/DL (0.1-1.0); BLOOD UREA NITROGEN 11 MG/DL (7-18); BUN/CREATININE RATIO 14.7 (10.0-20.0); CALCIUM 8.3 MG/DL (8.5-10.1); CHLORIDE 103 MMOL/L (99-107); CREATININE 0.75 MG/DL (0.40-0.90); GLUCOSE 142 MG/DL (70-104); POTASSIUM 3.2 MMOL/L (3.5-5.1); SODIUM 142 MMOL/L (135-145); TOTAL CARBON DIOXIDE 38.4 MMOL/L (24-32); TOTAL PROTEIN 5.1 G/DL (6.4-8.2); eGFR 74 ML/MIN
[2022-09-01 02:49] LABS: BASOPHILS % (AUTO) 0.5 % (0-1); EOSINOPHILS # (AUTO) 0.1 X10'3 (0-0.9); EOSINOPHILS % (AUTO) 1.3 % (0-6); HEMATOCRIT 31.3 % (35.0-45.0); HEMOGLOBIN 10.2 g/dl (12.0-16.0); LYMPHOCYTES # (AUTO) 0.6 X10'3 (1.1-4.8); LYMPHOCYTES % (AUTO) 8.3 % (21-51); MEAN CORPUSCULAR HEMOGLOBIN 30.5 PG (27.0-31.0); MEAN CORPUSCULAR HGB CONC 32.4 g/dL (33.0-36.5); MEAN CORPUSCULAR VOLUME 94.2 FL (78-98); MEAN PLATELET VOLUME 8.4 FL (7.4-10.4); MONOCYTES # (AUTO) 0.5 X10'3 (0-0.9); MONOCYTES % (AUTO) 6.6 % (2-12); NEUTROPHILS % (AUTO) 83.3 % (42-75); PLATELET COUNT 114 X10'3 (140-440); RED BLOOD COUNT 3.33 X10'6 (4.20-5.60); WHITE BLOOD COUNT 7.2 X10'3 (4.5-11.0)
[2022-09-01 03:02] LABS: ALANINE AMINOTRANSFERASE < 6 U/L (12-78)
[2022-09-01] MEDS: piperacillin/tazo 4.5gm/100ml 100 ML IV SCH ×2 (05:02→14:04)
--- NOTE | 2022-09-01 06:11 | NUR ---
Problems reprioritized. Patient report given, questions answered & plan of care reviewed with Ford CESAR.
[2022-09-01] MEDS: ascorbic acid 500mg tablet PO SCH ×2 (08:00→20:00)
[2022-09-01] MEDS: magnesium hydroxide 30ml (MOM) UD suspension PO SCH ×2 (08:00→20:00)
[2022-09-01] MEDS: pantoprazole 40mg Tablet.DR PO SCH (08:00)
[2022-09-01] MEDS: cilostazol 50mg tablet PO SCH ×2 (08:00→20:00)
[2022-09-01] MEDS: docusate sod 100mg capsule PO SCH ×2 (08:00→20:00)
[2022-09-01] MEDS: duloxetine 30mg CAPSULE.DR PO SCH (08:00)
[2022-09-01] MEDS: multivitamins, therapeutics tablet PO SCH (08:00)
[2022-09-01] MEDS: carVEDilol 12.5mg tablet PO SCH ×2 (08:00→20:00)
[2022-09-01] MEDS: clopidogrel 75mg tablet PO SCH (08:00)
[2022-09-01] MEDS: nystatin 15 GM powder TP SCH ×3 (08:01→21:45)
[2022-09-01] MEDS: gabapentin 300mg capsule PO SCH ×2 (08:16→20:00)
[2022-09-01] MEDS: lactose-reduced food (Ensure Enlive) - 237ml bottle PO SCH ×3 (08:37→18:00)
[2022-09-01] MEDS: K and/or MAG REPLACEMENT MC SCH ×2 (08:38→20:00)
[2022-09-01] MEDS: budesonide 0.5mg/2ml UD nebule IH SCH ×2 (08:40→19:58)
[2022-09-01] MEDS ORDERED: carvedilol 6.25mg tablet PO ONE (09:30)
--- NOTE | 2022-09-01 09:30 | NUR ---
Pt transferred to room 3023B monitored on telemetry. Dr Cullen rounded and examined pt immediately prior to transfer. Daughter had opportunity to speak with MD. Report called to TALI Huerta.
--- NOTE | 2022-09-01 10:25 | NUR ---
[id number] RECEIVED REPORT FROM NIALL IN ICU AND ASSUMED CARE OF PATIENT. VSS, PT LETHARGIC/SOMNOLENT IN THE ABSENCE OF ANY ALTERING MEDICATIONS ORIENTED X1. DAUGHTER AT BEDSIDE. SPOKE WITH DTR ABOUT PTS RECENT HOSPITALIZATIONS X3 IN THE LAST MONTH AT [facility]. DTR TEARFUL WHEN SPEAKING ABOUT HER MOM NOT GETTING BACK TO HER "SELF" DISCUSSED WITH HER, THE PLAN OF CARE HERE AT [facility]. DR GONZÁLES IN TO SEE DTR EARLIER THIS MORNING. WILL LET CASE MANAGEMENT KNOW PATIENT CANNOT GO BACK TO WHERE SHE WAS LIVING WHICH WAS ASSISTED LIVING. WILL CONTINUE TO CLOSELY MONITOR. BED ALARM HAS BEEN ACTIVATED FOR SAFETY
[2022-09-01] MEDS ORDERED: potassium Cl 20 mEq SR tablet PO PRN (16:30)
[2022-09-01] MEDS ORDERED: potassium Cl 40MEQ/1/2NS 520ml 520 ML IV PRN (16:30)
[2022-09-01] MEDS: potassium Cl 20 mEq SR tablet PO PRN (17:48)
[2022-09-01] MEDS ORDERED: rivaroxaban 20mg tablet PO SCH (18:00)
[2022-09-01] MEDS ORDERED: iohexol 350MG/ML 100ml bottle IV ONE (18:45)
[2022-09-01] MEDS: ipratropium/albuterol 3ml nebule NEB PRN (19:58)
[2022-09-01] MEDS ORDERED: carvedilol 6.25mg tablet PO SCH (20:00)
[2022-09-01] MEDS ORDERED: carVEDilol 12.5mg tablet PO SCH (20:00)
[2022-09-01] MEDS: traZODone 50mg tablet PO SCH (21:00)
[2022-09-01] MEDS: insulin glargine (Lantus) pen - multi-dose SQ SCH (21:45)
--- NOTE | 2022-09-02 00:17 | NUR ---
pt became sleepy after she came back from ct scan around 1944.Easy to arouse by shaking but only opens her eyes and goes back to sleep at once.About 2135 pt was awake but refused all her night med.RN explained to her the importance of taking her med especially her blood pressure med, but pt strongly refused.MD was notified with order to monitor pts blood pressure if she still refuse her bp med. Daughter called and was updated on moms situation including refusing her meds,ct scan and pt currently on bipap.
[2022-09-02] MEDS: piperacillin/tazo 4.5gm/100ml 100 ML IV SCH ×4 (00:37→21:48)
[2022-09-02 02:00] VITALS: BP 146/77
[2022-09-02 06:30] VITALS: BP 109/49
[2022-09-02] MEDS: budesonide 0.5mg/2ml UD nebule IH SCH ×2 (07:06→19:21)
[2022-09-02] MEDS: K and/or MAG REPLACEMENT MC SCH ×2 (08:00→20:00)
[2022-09-02] MEDS: lactose-reduced food (Ensure Enlive) - 237ml bottle PO SCH ×3 (08:00→18:02)
[2022-09-02] MEDS: docusate sod 100mg capsule PO SCH ×2 (08:00→19:17)
[2022-09-02] MEDS: magnesium hydroxide 30ml (MOM) UD suspension PO SCH ×2 (08:00→19:17)
[2022-09-02] MEDS: carVEDilol 12.5mg tablet PO SCH ×2 (08:14→19:11)
[2022-09-02 08:19] LABS: BASOPHILS % (AUTO) 0.2 % (0-1); EOSINOPHILS # (AUTO) 0.1 X10'3 (0-0.9); EOSINOPHILS % (AUTO) 0.9 % (0-6); HEMATOCRIT 36.2 % (35.0-45.0); HEMOGLOBIN 11.7 g/dl (12.0-16.0); LYMPHOCYTES # (AUTO) 0.9 X10'3 (1.1-4.8); LYMPHOCYTES % (AUTO) 8.3 % (21-51); MEAN CORPUSCULAR HEMOGLOBIN 30.3 PG (27.0-31.0); MEAN CORPUSCULAR HGB CONC 32.4 g/dL (33.0-36.5); MEAN CORPUSCULAR VOLUME 93.4 FL (78-98); MEAN PLATELET VOLUME 8.7 FL (7.4-10.4); MONOCYTES # (AUTO) 0.6 X10'3 (0-0.9); MONOCYTES % (AUTO) 5.2 % (2-12); NEUTROPHILS # (AUTO) 9.2 X10'3 (1.8-7.7); NEUTROPHILS % (AUTO) 85.4 % (42-75); PLATELET COUNT 149 X10'3 (140-440); RED BLOOD COUNT 3.88 X10'6 (4.20-5.60); RED CELL DISTRIBUTION WIDTH 15.9 % (11.5-14.5); WHITE BLOOD COUNT 10.8 X10'3 (4.5-11.0)
[2022-09-02 08:34] LABS: ALANINE AMINOTRANSFERASE 6 U/L (12-78); ALBUMIN 2.6 G/DL (3.4-5.0); ALBUMIN/GLOBULIN RATIO 0.8 (1.1-1.5); ALKALINE PHOSPHATASE 88 IU/L (46-116); ANION GAP 5 (8-16); ASPARTATE AMINO TRANSFERASE 14 U/L (10-37); BLOOD UREA NITROGEN 14 MG/DL (7-18); BUN/CREATININE RATIO 19.4 (10.0-20.0); CHLORIDE 102 MMOL/L (99-107); CREATININE 0.72 MG/DL (0.40-0.90); GLUCOSE 140 MG/DL (70-104); POTASSIUM 3.5 MMOL/L (3.5-5.1); SODIUM 141 MMOL/L (135-145); TOTAL CARBON DIOXIDE 33.9 MMOL/L (24-32); TOTAL PROTEIN 5.8 G/DL (6.4-8.2); eGFR 78 ML/MIN
[2022-09-02] MEDS: duloxetine 30mg CAPSULE.DR PO SCH (09:35)
[2022-09-02] MEDS: gabapentin 300mg capsule PO SCH ×2 (09:37→19:15)
[2022-09-02] MEDS: multivitamins, therapeutics tablet PO SCH (09:38)
[2022-09-02] MEDS: ascorbic acid 500mg tablet PO SCH ×2 (09:39→19:13)
[2022-09-02] MEDS: pantoprazole 40mg Tablet.DR PO SCH (09:39)
[2022-09-02] MEDS: cilostazol 50mg tablet PO SCH ×2 (09:39→19:12)
[2022-09-02] MEDS: clopidogrel 75mg tablet PO SCH (09:39)
[2022-09-02] MEDS: nystatin 15 GM powder TP SCH ×3 (09:41→21:44)
[2022-09-02] MEDS: insulin Lispro (HumaLOG) vial - multi-dose SQ SCH ×3 (09:45→18:54)
[2022-09-02] MEDS ORDERED: digoxin 250mcg/ml 2ml ampule IV ONE ×3 (10:25→23:00)
[2022-09-02 10:37] LABS: MAGNESIUM 1.4 MG/DL (1.5-2.4)
--- NOTE | 2022-09-02 10:46 | NUR ---
PAGED DR GONZÁLES ON BNP RESULTS ALSO PAGED CARDIOLOGY, SEE BELOW PAGER ID: [phone] MESSAGE: [address] [place] [phone] - PLEASE ADVISE - AMIE CESAR [phone]
[2022-09-02 11:30] VITALS: BP 125/79
[2022-09-02] MEDS ORDERED: furosemide 20 MG/2 ML vial IV ONE (14:50)
[2022-09-02 15:00] VITALS: BP 117/79
--- NOTE | 2022-09-02 17:18 | NUR ---
F/u 09/02: Pt PO remains poor mostly 0-25% vs refusing meals not meeting needs. Noted Ensure Enlive ordered 08/30 WL though dietary not notified until 09/01 WS pt PO ~53% avg first 3 (~60% WL today per RN) better intake but still not meeting needs. MARGARITA d/w RN who reports pt son fed her at bedside in past w/ better acceptance and that pt likes Ensures. MARGARITA d/w RN recommend feeder sign on pt door and encouragement w/ ONS- RN agreeable. If pt poor intake continues despite ONS will need supplemental EN to meet nutrition needs IF within POC. Given poor nutrition intake past week, mild weakness, and BUE 2+ edema pt meets non-severe malnutrition criteria-DO notified. Noted pt gained 13.55kg despite +1.2L cumulative fluid balance and poor intake since admit- likely bed scale errors w/ initial 78.1kg bed scale wt more accurate; true BMI 28.7. LBM 09/01. Will continue to follow. Recommendations: 1) Continue SB6 diet with thin liquids per ST recs; liberalize to regular as appropriate-pt denies difficulty chewing, RN confirmed 08/29 2) Ensure Enlive TIDWM per MD; Encourage PO; Feeder w/ all meals 3) Fruit TID, smoothie WB, shake and Magic Cup WL, shake and ice cream WS 4) [place] food preferences: oatmeal with brown sugar WB; dislikes cream of wheat and tomato bisque 5) IF poor PO persists pt would benefit from NGTF to meet nutrition needs IF within POC-day 7 poor intake w/ non-severe malnutrition 6) Continue routine MVI and vitamin C per physician discretion 7) Routine bowel care 8) Weekly scaled weights Addendum: 09/02/22 at [address] Amended: Links added.
[2022-09-02 18:00] VITALS: BP 173/72
[2022-09-02] MEDS: apixaban 5mg tablet PO SCH (19:12)
[2022-09-02] MEDS: ipratropium/albuterol 3ml nebule NEB PRN (19:20)
[2022-09-02] MEDS: traZODone 50mg tablet PO SCH (21:38)
[2022-09-02] MEDS: insulin glargine (Lantus) pen - multi-dose SQ SCH (21:43)
[2022-09-02 22:00] VITALS: BP 128/65
--- NOTE | 2022-09-03 00:12 | NUR ---
pt is refusing to wear her bipap,now on 1L nasal cannula. RT notified
[2022-09-03 02:00] VITALS: BP 109/50
[2022-09-03 06:30] VITALS: BP 164/81
--- NOTE | 2022-09-03 06:42 | NUR ---
Problems reprioritized. Patient report given, questions answered & plan of care reviewed with Inez.
--- NOTE | 2022-09-03 06:44 | NUR ---
Problems reprioritized. Patient report given, questions answered & plan of care reviewed with Inez.
[2022-09-03] MEDS: ipratropium/albuterol 3ml nebule NEB PRN (07:40)
[2022-09-03] MEDS: budesonide 0.5mg/2ml UD nebule IH SCH ×2 (07:40→20:19)
[2022-09-03] MEDS: docusate sod 100mg capsule PO SCH ×2 (08:00→20:00)
[2022-09-03] MEDS: lactose-reduced food (Ensure Enlive) - 237ml bottle PO SCH ×3 (08:00→18:09)
[2022-09-03] MEDS: nystatin 15 GM powder TP SCH ×3 (08:00→21:00)
[2022-09-03] MEDS: furosemide 20 MG/2 ML vial IV SCH (08:00)
[2022-09-03] MEDS: K and/or MAG REPLACEMENT MC SCH ×2 (08:00→20:00)
[2022-09-03] MEDS: magnesium hydroxide 30ml (MOM) UD suspension PO SCH ×2 (08:00→20:00)
[2022-09-03 08:19] LABS: BASOPHILS % (AUTO) 0.4 % (0-1); EOSINOPHILS # (AUTO) 0.3 X10'3 (0-0.9); EOSINOPHILS % (AUTO) 3.7 % (0-6); HEMATOCRIT 35.7 % (35.0-45.0); HEMOGLOBIN 11.7 g/dl (12.0-16.0); LYMPHOCYTES # (AUTO) 0.9 X10'3 (1.1-4.8); LYMPHOCYTES % (AUTO) 9.3 % (21-51); MEAN CORPUSCULAR HEMOGLOBIN 30.6 PG (27.0-31.0); MEAN CORPUSCULAR HGB CONC 32.8 g/dL (33.0-36.5); MEAN CORPUSCULAR VOLUME 93.4 FL (78-98); MEAN PLATELET VOLUME 8.3 FL (7.4-10.4); MONOCYTES # (AUTO) 0.4 X10'3 (0-0.9); MONOCYTES % (AUTO) 4.4 % (2-12); NEUTROPHILS # (AUTO) 7.6 X10'3 (1.8-7.7); NEUTROPHILS % (AUTO) 82.2 % (42-75); PLATELET COUNT 143 X10'3 (140-440); RED BLOOD COUNT 3.82 X10'6 (4.20-5.60); RED CELL DISTRIBUTION WIDTH 15.9 % (11.5-14.5); WHITE BLOOD COUNT 9.2 X10'3 (4.5-11.0)
[2022-09-03] MEDS: multivitamins, therapeutics tablet PO SCH (08:23)
[2022-09-03] MEDS: clopidogrel 75mg tablet PO SCH (08:23)
[2022-09-03] MEDS: gabapentin 300mg capsule PO SCH ×2 (08:24→20:29)
[2022-09-03] MEDS: carVEDilol 12.5mg tablet PO SCH ×2 (08:25→20:29)
[2022-09-03] MEDS: cilostazol 50mg tablet PO SCH ×2 (08:26→20:29)
[2022-09-03] MEDS: digoxin 125mcg (0.125mg) tablet PO SCH (08:28)
[2022-09-03] MEDS: pantoprazole 40mg Tablet.DR PO SCH (08:28)
[2022-09-03] MEDS: apixaban 5mg tablet PO SCH ×2 (08:28→20:30)
[2022-09-03] MEDS: ascorbic acid 500mg tablet PO SCH ×2 (08:29→20:30)
[2022-09-03] MEDS: duloxetine 30mg CAPSULE.DR PO SCH (08:29)
[2022-09-03] MEDS: piperacillin/tazo 4.5gm/100ml 100 ML IV SCH (08:36)
[2022-09-03 08:41] LABS: ALANINE AMINOTRANSFERASE 7 U/L (12-78); ALBUMIN 2.4 G/DL (3.4-5.0); ALBUMIN/GLOBULIN RATIO 0.8 (1.1-1.5); ALKALINE PHOSPHATASE 81 IU/L (46-116); ANION GAP -1 (8-16); ASPARTATE AMINO TRANSFERASE 16 U/L (10-37); BLOOD UREA NITROGEN 14 MG/DL (7-18); BUN/CREATININE RATIO 16.5 (10.0-20.0); CALCIUM 8.5 MG/DL (8.5-10.1); CHLORIDE 102 MMOL/L (99-107); CREATININE 0.85 MG/DL (0.40-0.90); GLUCOSE 107 MG/DL (70-104); POTASSIUM 3.3 MMOL/L (3.5-5.1); SODIUM 140 MMOL/L (135-145); TOTAL CARBON DIOXIDE 38.6 MMOL/L (24-32); TOTAL PROTEIN 5.4 G/DL (6.4-8.2); eGFR 64 ML/MIN
[2022-09-03] MEDS ORDERED: gabapentin capsule PO (09:45)
[2022-09-03] MEDS ORDERED: CARV-50 PO (09:45)
[2022-09-03 09:55] LABS: MAGNESIUM 1.4 MG/DL (1.5-2.4)
[2022-09-03 11:00] VITALS: BP 130/64
[2022-09-03 15:00] VITALS: BP 153/67
[2022-09-03 18:00] VITALS: BP 94/63
[2022-09-03] MEDS: insulin Lispro (HumaLOG) vial - multi-dose SQ SCH (20:26)
[2022-09-03] MEDS: traZODone 50mg tablet PO SCH (20:29)
[2022-09-03 22:00] VITALS: BP 130/63
[2022-09-03] MEDS: insulin glargine (Lantus) pen - multi-dose SQ SCH (22:30)
[2022-09-04 03:00] VITALS: BP 98/64
[2022-09-04] MEDS: potassium Cl 20 mEq SR tablet PO PRN (04:30)
--- NOTE | 2022-09-04 06:36 | NUR ---
Problems reprioritized. Patient report given, questions answered & plan of care reviewed with Chelsea CESAR. Pt stable at shift report.
[2022-09-04 07:00] VITALS: BP 117/71
--- NOTE | 2022-09-04 07:38 | NUR ---
Patient in room PCU 3023. I have received report from Vita PEREYRA and had the opportunity to ask questions and assume patient care.
[2022-09-04] MEDS: ipratropium/albuterol 3ml nebule NEB PRN (07:48)
[2022-09-04] MEDS: budesonide 0.5mg/2ml UD nebule IH SCH (07:48)
[2022-09-04] MEDS: nystatin 15 GM powder TP SCH (08:00)
[2022-09-04] MEDS: docusate sod 100mg capsule PO SCH (08:00)
[2022-09-04] MEDS: K and/or MAG REPLACEMENT MC SCH (08:00)
[2022-09-04] MEDS: magnesium hydroxide 30ml (MOM) UD suspension PO SCH (08:00)
[2022-09-04] MEDS: pantoprazole 40mg Tablet.DR PO SCH (08:06)
[2022-09-04] MEDS: carVEDilol 12.5mg tablet PO SCH (08:06)
[2022-09-04] MEDS: clopidogrel 75mg tablet PO SCH (08:06)
[2022-09-04] MEDS: apixaban 5mg tablet PO SCH (08:06)
[2022-09-04] MEDS: multivitamins, therapeutics tablet PO SCH (08:06)
[2022-09-04] MEDS: digoxin 125mcg (0.125mg) tablet PO SCH (08:07)
[2022-09-04] MEDS: gabapentin 300mg capsule PO SCH (08:07)
[2022-09-04] MEDS: ascorbic acid 500mg tablet PO SCH (08:08)
[2022-09-04] MEDS: cilostazol 50mg tablet PO SCH (08:08)
[2022-09-04] MEDS: furosemide 20 MG/2 ML vial IV SCH (08:08)
[2022-09-04] MEDS: duloxetine 30mg CAPSULE.DR PO SCH (08:08)
[2022-09-04] MEDS: lactose-reduced food (Ensure Enlive) - 237ml bottle PO SCH (08:26)
--- NOTE | 2022-09-04 10:30 | NUR ---
Patients daughter called and she is aware patient is going to [facility] today at noon.
--- NOTE | 2022-09-04 10:47 | NUR ---
Dr Cullen aware of patients labs from yesterday and that patient has had diarrhea today all stool softners held. No new orders for labs
[2022-09-04 11:00] VITALS: BP 97/71
--- NOTE | 2022-09-04 11:33 | NUR ---
Called Mariana PEREYRA and gave report at [facility] on patient. All questions answered.
--- NOTE | 2022-09-04 12:30 | NUR ---
Patient discharge instructions called to Mariana PEREYRA at [facility] ([place] Patients IV dc'd cannula intact , Tele Dc'd for discharge. All patients belongings including Bipap mask requested to be sent by Aishwarya caser in.
== END 2022-09-04 12:30 | DRG 871 ==
LOC: ER 21:28 → ED HOLD 08-27 00:16 → EDBEDREQ 08-27 03:49 → ICU 2S 08-27 04:41 → PCU 3S 09-01 09:33
PROVIDERS: ADMIT Family Medicine; ATTEND Internal Medicine
PROC: 02HV33Z Insertion of Infusion Device into Superior Vena Cava, Percutaneous Approach (ICD-10-PCS; 2022-08-26)
PROC: B548ZZA Ultrasonography of Superior Vena Cava, Guidance (ICD-10-PCS; 2022-08-26)
PROC: 5A09357 Assistance with Respiratory Ventilation, Less than 24 Consecutive Hours, Continuous Positive Airway Pressure (ICD-10-PCS; principal; 2022-09-01)
PROC: B32T1ZZ Computerized Tomography (CT Scan) of Left Pulmonary Artery using Low Osmolar Contrast (ICD-10-PCS; 2022-09-01)
PROC: B3201ZZ Computerized Tomography (CT Scan) of Thoracic Aorta using Low Osmolar Contrast (ICD-10-PCS; 2022-09-01)
PROC: B32S1ZZ Computerized Tomography (CT Scan) of Right Pulmonary Artery using Low Osmolar Contrast (ICD-10-PCS; 2022-09-01)
PROC: 5A09357 Assistance with Respiratory Ventilation, Less than 24 Consecutive Hours, Continuous Positive Airway Pressure (ICD-10-PCS; 2022-09-02)
PROC: 5A09357 Assistance with Respiratory Ventilation, Less than 24 Consecutive Hours, Continuous Positive Airway Pressure (ICD-10-PCS; 2022-09-03)
PROC: 5A09357 Assistance with Respiratory Ventilation, Less than 24 Consecutive Hours, Continuous Positive Airway Pressure (ICD-10-PCS; 2022-09-04)
DX: A41.9 Sepsis, unspecified organism (principal); G93.41 Metabolic encephalopathy; J18.9 Pneumonia, unspecified organism; R65.21 Severe sepsis with septic shock; J96.21 Acute and chronic respiratory failure with hypoxia; J96.22 Acute and chronic respiratory failure with hypercapnia; N17.0 Acute kidney failure with tubular necrosis; I50.32 Chronic diastolic (congestive) heart failure; J44.0 Chronic obstructive pulmonary disease with (acute) lower respiratory infection; J98.11 Atelectasis; Z66 Do not resuscitate; F32.A Depression, unspecified; E11.51 Type 2 diabetes mellitus with diabetic peripheral angiopathy without gangrene; F03.A0 Unspecified dementia, mild, without behavioral disturbance, psychotic disturbance, mood disturbance, and anxiety; E11.65 Type 2 diabetes mellitus with hyperglycemia; W18.39XA Other fall on same level, initial encounter; E78.5 Hyperlipidemia, unspecified; E87.6 Hypokalemia; M79.604 Pain in right leg; I27.20 Pulmonary hypertension, unspecified; I48.0 Paroxysmal atrial fibrillation; I08.1 Rheumatic disorders of both mitral and tricuspid valves; E86.0 Dehydration; R79.89 Other specified abnormal findings of blood chemistry; E83.42 Hypomagnesemia; I11.0 Hypertensive heart disease with heart failure; I25.10 Atherosclerotic heart disease of native coronary artery without angina pectoris; Z79.01 Long term (current) use of anticoagulants; Z79.02 Long term (current) use of antithrombotics/antiplatelets; Z86.73 Personal history of transient ischemic attack (TIA), and cerebral infarction without residual deficits; Z87.891 Personal history of nicotine dependence; Z88.6 Allergy status to analgesic agent; Z90.710 Acquired absence of both cervix and uterus; Y93.89 Activity, other specified; Y92.89 Other specified places as the place of occurrence of the external cause; Y99.8 Other external cause status; Z90.49 Acquired absence of other specified parts of digestive tract; Z79.899 Other long term (current) drug therapy
CPT/HCPCS: 36415; 36600; 70450; 71045; 71275; 73502; 73560; 80053; 81001; 82803; 82948; 83036; 83605; 83735; 83880; 84100; 84132; 84145; 84484; 85007; 85008; 85018; 85025; 87040; 87081; 87088; 92508; 92616; 93005; 93306; 94640; 94660; 94760; 97110; 97161; 97530; 97535; 99285; A4333; A4615; A4649; A5200; A6212; A6213; A6222; A6223; A6250; A6258; A6260; A6449; C1729; C1751; C9113; G0378; J1160; J1650; J1940; J2543; J3370; J3480; J3490; J7030; J7040; Q9967